=== PATIENT | female | born 2000 | race Caucasian/White ===

== ENCOUNTER 2019-09-06 17:45 | Emergency (ER) | payer BC, OTHER ==
[~2019-09-06] VITALS: Ht 154.9 cm; Wt 88.4 kg
[2019-09-06 17:46] VITALS: BP 142/88
[2019-09-06] MEDS ORDERED: ISIB1TAB (17:53)
[2019-09-06] MEDS ORDERED: KEFL500C17 PO (18:45)
== END 2019-09-06 18:51 | disposition home or self-care (01) ==
LOC: M ED 17:45
DX: S61.202A Unspecified open wound of right middle finger without damage to nail, initial encounter (principal); W26.8XXA Contact with other sharp object(s), not elsewhere classified, initial encounter; Y92.009 Unspecified place in unspecified non-institutional (private) residence as the place of occurrence of the external cause

== ENCOUNTER → 2019-10-10 | Outpatient (REF) | payer OTHER ==
[~2019-10-10] MED LIST: ISIB1TAB; KEFL500C17 PO
== END ==
LOC: M LAB REF 16:42
PROVIDERS: ATTEND Physician Assistant
DX: Z03.818 Encounter for observation for suspected exposure to other biological agents ruled out (principal); Z11.59 Encounter for screening for other viral diseases

== ENCOUNTER → 2020-07-15 | Outpatient (CLI) | payer SELFPAY | LOC: M LABSMTC 10:27 | PROVIDERS: ATTEND Pediatrics | DX: Z20.822 Contact with and (suspected) exposure to COVID-19 (principal) ==

== ENCOUNTER 2021-12-16 11:28 | Emergency (ER) | payer OTHER ==
[~2021-12-16] VITALS: Ht 154.9 cm; Wt 102.7 kg
[2021-12-16] MEDS ORDERED: ONDA4TAB6 PO (11:38)
[2021-12-16 12:38] LABS: BASO % 0.2 % (0.0-1.0); EOS # 0.1 10^3/uL (0.0-0.5); EOS % 0.4 % (0.0-3.0); HEMATOCRIT 40.9 % (36.0-47.0); HEMOGLOBIN 13.5 g/dl (12.0-15.5); LYMPH # 1.2 10^3/uL (1.5-5.0); LYMPH % 6.4 % (24.0-44.0); MEAN CORPUSCULAR HEMOGLOBIN 27.7 pg (27.0-33.0); MEAN CORPUSCULAR VOLUME 83.8 fl (80.0-96.0); MONO % 5.6 % (2.0-8.0); NEUTROPHILS # 16.3 10^3/uL (1.5-8.5); NEUTROPHILS % 86.9 % (36.0-66.0); PLATELET COUNT, AUTOMATED 329 10^3/uL (150-450); RED BLOOD COUNT 4.88 10^6/uL (4.00-5.40); WHITE BLOOD COUNT 18.7 10^3/uL (4.0-10.0)
[2021-12-16] MEDS ORDERED: MECLIZINE 25 MG TABLET PO ONE (13:30)
[2021-12-16] MEDS ORDERED: NS 1,000 ML IV ONE (13:35)
[2021-12-16 14:11] LABS: ALBUMIN 3.6 GM/DL (3.2-5.2); ALT/SGPT 28 U/L (12-78); BILIRUBIN,TOTAL 0.4 MG/DL (0.2-1.0); BLOOD UREA NITROGEN 7 MG/DL (7-18); CARBON DIOXIDE LEVEL 24 MEQ/L (21-32); CHLORIDE LEVEL 103 MEQ/L (98-107); CREATININE FOR GFR 0.71 MG/DL (0.55-1.30); GLOMERULAR FILTRATION RATE > 60.0 (>60); GLUCOSE, FASTING 84 MG/DL (70-100); HCG, SERUM QUANTITATIVE 58466 MIU/ML; POTASSIUM SERUM 4.1 MEQ/L (3.5-5.1); SODIUM LEVEL 138 MEQ/L (136-145); TOTAL PROTEIN 7.6 GM/DL (6.4-8.2)
[2021-12-16 14:50] LABS: CPK CREATINE PHOSPHOKINASE 63 U/L (26-192)
[2021-12-16] MEDS ORDERED: METOCLOPRAMIDE INJ 10MG/2ML VIAL (J2765 PER 1) IV ONE (15:25)
[2021-12-16] MEDS ORDERED: AMOX500C PO (16:06)
[2021-12-16] MEDS ORDERED: MECL1TAB31 PO (16:07)
[2021-12-16 16:30] VITALS: BP 130/67
== END 2021-12-16 16:32 | disposition home or self-care (01) ==
LOC: M ED 11:28
DX: O99.511 Diseases of the respiratory system complicating pregnancy, first trimester (principal); O00.01 Abdominal pregnancy with intrauterine pregnancy; O26.811 Pregnancy related exhaustion and fatigue, first trimester; F41.9 Anxiety disorder, unspecified; Z86.19 Personal history of other infectious and parasitic diseases; Z3A.01 Less than 8 weeks gestation of pregnancy; Z79.899 Other long term (current) drug therapy
CPT/HCPCS: 70551; 76801; 80053; 81000; 81015; 82550; 84484; 84702; 85025; 87077; 87186; 87486; 87581; 87633; 87798; 93005; 96361; 96374; 99284; J2765

== ENCOUNTER 2022-04-11 19:47 | Outpatient (CLI) | payer OTHER ==
[~2022-04-11] VITALS: Ht 154.9 cm; Wt 100.0 kg
[~2022-04-11 19:47] MED LIST changes: +AMOX500C PO; +MECL1TAB31 PO; +ONDA4TAB6 PO
[2022-04-11 19:59] VITALS: BP 124/78
[2022-04-11] MEDS ORDERED: PRENTAB9 PO (20:12)
[2022-04-11] MEDS ORDERED: ASPI81CH33 PO (20:12)
[2022-04-11] MEDS ORDERED: HOME MED LIST COMPLETE! XX SCH (20:15)
[2022-04-11] MEDS ORDERED: FLUCONAZOLE 50MG TABLET PO ONE (20:50)
== END 2022-04-11 21:03 | disposition home or self-care (01) ==
LOC: M LDO 19:47
PROVIDERS: ATTEND Obstetrics & Gynecology
DX: O26.892 Other specified pregnancy related conditions, second trimester (principal); Z3A.23 23 weeks gestation of pregnancy; O26.852 Spotting complicating pregnancy, second trimester; O99.213 Obesity complicating pregnancy, third trimester; E66.9 Obesity, unspecified; Z79.82 Long term (current) use of aspirin
CPT/HCPCS: 59025; 76815; 81000; 81015; 87088; 87186; G0463

== ENCOUNTER 2022-05-22 11:10 | Outpatient (CLI) | payer OTHER ==
[~2022-05-22] VITALS: Ht 154.9 cm; Wt 109.0 kg
[~2022-05-22 11:10] MED LIST changes: +ASPI81CH33 PO; +PRENTAB9 PO
[2022-05-22 11:26] VITALS: BP 130/71
[2022-05-22] MEDS ORDERED: TUMS500C PO (11:37)
[2022-05-22] MEDS ORDERED: HOME MED LIST COMPLETE! XX SCH (11:40)
== END 2022-05-22 13:37 | disposition home or self-care (01) ==
LOC: M LDO 11:10
PROVIDERS: ATTEND Obstetrics & Gynecology
DX: O9A.213 Injury, poisoning and certain other consequences of external causes complicating pregnancy, third trimester (principal); R10.2 Pelvic and perineal pain; W01.0XXA Fall on same level from slipping, tripping and stumbling without subsequent striking against object, initial encounter; Y92.9 Unspecified place or not applicable; Z3A.29 29 weeks gestation of pregnancy
CPT/HCPCS: 59025; 76815; G0463

== ENCOUNTER 2022-07-04 10:21 | Outpatient (CLI) | payer OTHER ==
[~2022-07-04] VITALS: Ht 154.9 cm; Wt 112.7 kg
[~2022-07-04 10:21] MED LIST changes: +TUMS500C PO
[2022-07-04] MEDS ORDERED: ACET-897 PO (10:37)
[2022-07-04] MEDS ORDERED: HOME MED LIST COMPLETE! XX SCH (10:40)
[2022-07-04 11:04] VITALS: BP 138/85
[2022-07-04] MEDS ORDERED: FLUCONAZOLE 50MG TABLET PO ONE (11:25)
== END 2022-07-04 11:35 | disposition home or self-care (01) ==
LOC: M LDO 10:21
PROVIDERS: ATTEND Registered Nurse
DX: O36.8130 Decreased fetal movements, third trimester, not applicable or unspecified (principal); Z3A.35 35 weeks gestation of pregnancy; O23.593 Infection of other part of genital tract in pregnancy, third trimester; B37.9 Candidiasis, unspecified
CPT/HCPCS: 59025; 76815; 87081; G0463

== ENCOUNTER 2022-07-28 19:55 | Outpatient (CLI) | payer OTHER ==
[~2022-07-28] VITALS: Ht 154.9 cm; Wt 116.9 kg
[~2022-07-28 19:55] MED LIST changes: +ACET-897 PO
[2022-07-28 20:14] VITALS: BP 134/80
[2022-07-28] MEDS ORDERED: PEPC1TAB5 PO (20:32)
[2022-07-28] MEDS ORDERED: HOME MED LIST COMPLETE! XX SCH (20:55)
== END 2022-07-28 22:33 | disposition home or self-care (01) ==
LOC: M LDO 19:55
PROVIDERS: ATTEND Obstetrics & Gynecology
DX: O47.1 False labor at or after 37 completed weeks of gestation (principal); Z3A.39 39 weeks gestation of pregnancy; Z79.82 Long term (current) use of aspirin; Z79.899 Other long term (current) drug therapy
CPT/HCPCS: 59025; 76815; G0463

== ENCOUNTER 2022-08-03 15:14 | Inpatient (IN) | payer OTHER ==
[2022-08-03] VITALS (17 sets, daily range): BP systolic 116–170; BP diastolic 55–98
[~2022-08-03] VITALS: Ht 154.9 cm; Wt 115.5 kg
[~2022-08-03 15:14] MED LIST changes: +PEPC1TAB5 PO
[2022-08-03] MEDS ORDERED: LACTATED RINGER'S 1000 ML IV STA (16:09)
[2022-08-03] MEDS ORDERED: LIDOCAINE 1% MDV 20ML VIAL INFIL PRN (16:10)
[2022-08-03] MEDS ORDERED: LR 1,000 ML IV SCH (16:10)
[2022-08-03] MEDS ORDERED: TRANEXAMIC ACID INJection 1,000 MG in NS 100 ML IV PRN (16:10)
[2022-08-03] MEDS ORDERED: CARBOPROST TROMETHAMINE 250 MCG/ML AMP IM PRN (16:10)
[2022-08-03] MEDS ORDERED: OXYTOCIN DRIP 30 UNITS in IV 1 EA IV PRN ×4 (16:10)
[2022-08-03 16:32] LABS: HEMATOCRIT 35.7 % (36.0-47.0); HEMOGLOBIN 12.2 g/dl (12.0-15.5); MEAN CORPUSCULAR HEMOGLOBIN 29.3 pg (27.0-33.0); MEAN CORPUSCULAR HGB CONC 34.2 g/dl (32.0-36.5); MEAN CORPUSCULAR VOLUME 85.8 fl (80.0-96.0); PLATELET COUNT, AUTOMATED 247 10^3/uL (150-450); RED BLOOD COUNT 4.16 10^6/uL (4.00-5.40); WHITE BLOOD COUNT 13.2 10^3/uL (4.0-10.0)
[2022-08-03] MEDS ORDERED: OXYTOCIN DRIP 30 UNITS in IV 1 EA IV SCH (16:45)
[2022-08-03] MEDS: LR 1,000 ML IV SCH ×2 (17:03→21:24)
[2022-08-03] MEDS ORDERED: NALBUPHINE HCL 10 MG/ML 1ML AMP IV PRN (20:40)
[2022-08-04] VITALS (30 sets, daily range): BP systolic 101–141; BP diastolic 57–102
[2022-08-04] MEDS ORDERED: diphenhydrAMINE 50MG/ML VIAL IV PRN ×2 (01:35→09:35)
[2022-08-04] MEDS ORDERED: ePHEDrine SULFATE 25 MG/5 ML(5MG/ML) SYRINGE IVP PRN (01:35)
[2022-08-04] MEDS ORDERED: LR 500 ML IV PRN (01:35)
[2022-08-04] MEDS ORDERED: FENTANYL/ROPIVACAINE/NACL BAG 100 ML EPIDURAL SCH (01:35)
[2022-08-04] MEDS ORDERED: ONDANSETRON 4MG 2ML VIAL IV PRN ×3 (01:35→09:35)
[2022-08-04] MEDS ORDERED: NALOXONE INJ 0.4MG/1ML VIAL IV PRN ×3 (01:35→09:35)
[2022-08-04] MEDS ORDERED: EPIDURAL/PCA KEYS XX PRN (01:35)
[2022-08-04] MEDS ORDERED: ONDANSETRON 4MG 2ML VIAL As Ordered ONE (07:39)
[2022-08-04] MEDS ORDERED: KETOROLAC 60MG 2ML VIAL As Ordered ONE (07:39)
[2022-08-04] MEDS ORDERED: OXYTOCIN INJ 10UNITS/ML 1ML VIAL As Ordered ONE (07:39)
[2022-08-04] MEDS ORDERED: OXYTOCIN DRIP 30 UNITS in IV 1 EA IV PRN ×4 (07:40)
[2022-08-04] MEDS ORDERED: TRANEXAMIC ACID INJection 1,000 MG in NS 100 ML IV PRN (07:40)
[2022-08-04] MEDS ORDERED: METHYLERGONOVINE MALEATE 0.2MG/ML 1ML VIAL IM PRN (07:40)
[2022-08-04] MEDS ORDERED: AZITHROMYCIN INJ 500 MG, VIAL MATE ADAPTER 1 EACH in NS 250 ML IV ONE (07:40)
[2022-08-04] MEDS ORDERED: LIDOCAINE 1% MDV 20ML VIAL INFIL PRN (07:40)
[2022-08-04] MEDS ORDERED: BUPIVACAINE HCL 0.25% 10ML VIAL SC ONE (07:40)
[2022-08-04] MEDS ORDERED: BICITRA 30ML SOLN UDC PO ONE (07:40)
[2022-08-04] MEDS ORDERED: ceFAZolin SOD 3 GM IV Place Holder IV ONE (07:40)
[2022-08-04] MEDS ORDERED: MORPHINE PRES-FREE INJ 10 MG/10 ML VIAL As Ordered ONE (07:40)
[2022-08-04] MEDS ORDERED: LIDOCAINE 2% W/EPINEPHRINE 20ML VIAL **PRES FREE As Ordered ONE (07:46)
[2022-08-04] MEDS ORDERED: ceFAZolin SOD 1 GM in D5W MINI-BAG PLUS 50 ML IV ONE (07:50)
[2022-08-04] MEDS ORDERED: ceFAZolin SOD 2 GM in IV 1 EA IV ONE (07:50)
[2022-08-04] MEDS ORDERED: fentaNYL 100 MCG/2 ML INJECTION As Ordered ONE (08:33)
[2022-08-04] MEDS ORDERED: PHENYLephrine 500MCG 5ML (100MCG/ML) SYRINGE As Ordered ONE (08:41)
[2022-08-04 08:52] LABS: CORD GAS ABE A -3.7; CORD GAS HCO3 A 25.2 MMOL/L; CORD GAS O2 SAT A 56.6 %; CORD GAS PCO2 A 59.8 mmHg; CORD GAS PH A 7.242 UNITS; CORD GAS PO2 A 26.2 mmHg; CORD GAS SBC A 20.4 MMOL/L
[2022-08-04 08:54] LABS: CORD GAS ABE V -6.4; CORD GAS HCO3 V 20.2 MMOL/L; CORD GAS O2 SAT V 81.3 %; CORD GAS PCO2 V 44.1 mmHg; CORD GAS PH V 7.279 UNITS; CORD GAS PO2 V 39.3 mmHg; CORD GAS SBC V 18.9 MMOL/L; CORD GAS TCO2 V 21.6 MMOL/L
[2022-08-04] MEDS: DOCUSATE SODIUM 100MG CAPSULE PO SCH ×2 (09:00→21:13)
[2022-08-04] MEDS: PRENATAL VITAMINS CHEWABLE TABLET PO SCH (09:00)
[2022-08-04] MEDS ORDERED: BUPIVACAINE/EPIN 0.25% 30ML VIAL As Ordered ONE (09:09)
[2022-08-04] MEDS ORDERED: ONDANSETRON 4MG TAB PO PRN (09:20)
[2022-08-04] MEDS ORDERED: METHYLERGONOVINE MALEATE 0.2 MG TAB PO PRN (09:20)
[2022-08-04] MEDS ORDERED: OXYTOCIN DRIP 30 UNITS in IV 1 EA IV SCH ×4 (09:20)
[2022-08-04] MEDS ORDERED: oxyCODONE 5MG TAB PO PRN ×2 (09:20→09:35)
[2022-08-04] MEDS ORDERED: RHOGAM 300MCG (1500IU) INJ IM SCH (09:20)
[2022-08-04] MEDS ORDERED: SIMETHICONE 80MG CHEW TAB PO PRN (09:20)
[2022-08-04] MEDS ORDERED: MOM 30ML SUSPENSION UDC PO PRN (09:20)
[2022-08-04] MEDS: SLF 3 ML SYR IV SCH ×2 (09:35→18:22)
[2022-08-04] MEDS ORDERED: fentaNYL 100 MCG/2 ML INJECTION IV PRN (09:35)
[2022-08-04] MEDS ORDERED: METOCLOPRAMIDE INJ 10MG/2ML VIAL IV PRN (09:35)
[2022-08-04] MEDS ORDERED: **NOTE PATIENT COMMENT** MISC XX SCH (09:35)
[2022-08-04] MEDS ORDERED: HYDROMORPHONE HCL 0.5 MG/ 0.5 ML SYRINGE IV PRN (09:35)
[2022-08-04] MEDS: ACETAMINOPHEN 500 MG TAB PO SCH ×2 (12:31→18:22)
[2022-08-04] MEDS: LR 1,000 ML IV SCH ×2 (12:33→16:45)
[2022-08-04] MEDS: KETOROLAC 30 MG/ML 1ML VIAL IV SCH ×2 (15:13→21:14)
[2022-08-04] MEDS ORDERED: LR 1,000 ML IV SCH (19:30)
[2022-08-05] MEDS: ACETAMINOPHEN 500 MG TAB PO SCH ×4 (00:21→17:59)
[2022-08-05 02:00] VITALS: BP 120/67
[2022-08-05] MEDS: SLF 3 ML SYR IV SCH (02:02)
[2022-08-05] MEDS: KETOROLAC 30 MG/ML 1ML VIAL IV SCH (02:48)
[2022-08-05 05:47] LABS: HEMATOCRIT 29.6 % (36.0-47.0); MEAN CORPUSCULAR HEMOGLOBIN 29.4 pg (27.0-33.0); MEAN CORPUSCULAR HGB CONC 33.1 g/dl (32.0-36.5); MEAN CORPUSCULAR VOLUME 88.9 fl (80.0-96.0); PLATELET COUNT, AUTOMATED 196 10^3/uL (150-450); RED BLOOD COUNT 3.33 10^6/uL (4.00-5.40); WHITE BLOOD COUNT 15.7 10^3/uL (4.0-10.0)
[2022-08-05 05:54] LABS: HEMOGLOBIN 9.8 g/dl (12.0-15.5)
[2022-08-05 06:00] VITALS: BP 128/98
[2022-08-05 08:07] LABS: URIC ACID 7.4 MG/DL (3.1-7.8)
[2022-08-05 08:09] LABS: LDH LACTATE DEHYDROGENASE 247 U/L (120-246)
[2022-08-05 08:10] LABS: ALBUMIN 1.9 G/DL (3.2-5.2); ALKALINE PHOSPHATASE 121 U/L (46-116); ALT/SGPT 34 U/L (7.0-40); AST/SGOT 29 U/L (<34); BILIRUBIN,TOTAL 0.4 MG/DL (0.3-1.2); BLOOD UREA NITROGEN 9 MG/DL (9-23); CALCIUM LEVEL 8.1 MG/DL (8.5-10.1); CARBON DIOXIDE LEVEL 24 MMOL/L (20-31); CHLORIDE LEVEL 107 MMOL/L (98-107); CREATININE FOR GFR 0.68 MG/DL (0.55-1.30); GLOMERULAR FILTRATION RATE > 60.0 (>60); GLUCOSE, FASTING 71 MG/DL (60-100); POTASSIUM SERUM 3.7 MMOL/L (3.5-5.1); SODIUM LEVEL 139 MMOL/L (136-145); TOTAL PROTEIN 4.6 G/DL (5.7-8.2)
[2022-08-05] MEDS: PRENATAL VITAMINS CHEWABLE TABLET PO SCH (09:00)
[2022-08-05 10:00] VITALS: BP 115/66
[2022-08-05] MEDS: oxyCODONE 5MG TAB PO PRN ×2 (12:04→23:21)
[2022-08-05] MEDS: IBUPROFEN 800 MG TAB PO SCH ×2 (12:20→18:00)
[2022-08-05] MEDS: DOCUSATE SODIUM 100MG CAPSULE PO SCH ×2 (12:35→21:37)
[2022-08-05 14:00] VITALS: BP 121/68
[2022-08-05 18:00] VITALS: BP 118/64
[2022-08-05 22:00] VITALS: BP 130/82
[2022-08-06] MEDS: ACETAMINOPHEN 500 MG TAB PO SCH ×2 (00:49→05:35)
[2022-08-06 02:00] VITALS: BP 122/78
[2022-08-06] MEDS: IBUPROFEN 800 MG TAB PO SCH (02:42)
[2022-08-06 06:00] VITALS: BP 123/69
[2022-08-06] MEDS ORDERED: MEASLES,MUMPS,RUBELLA VACCINE INJ (MMR-II) SC.IMMUN ONE (09:00)
[2022-08-06] MEDS: PRENATAL VITAMINS CHEWABLE TABLET PO SCH (09:54)
[2022-08-06] MEDS: DOCUSATE SODIUM 100MG CAPSULE PO SCH (09:54)
[2022-08-06 10:00] VITALS: BP 133/90
== END 2022-08-06 11:55 | disposition home or self-care (01) | DRG 772 ==
LOC: M LDI 15:14 → M OBS 08-04 11:15
PROVIDERS: ADMIT Advanced Practice Midwife; ATTEND Obstetrics & Gynecology
PROC: 10D00Z1 Extraction of Products of Conception, Low, Open Approach (ICD-10-PCS; principal; 2022-08-04 08:00)
DX: O42.02 Full-term premature rupture of membranes, onset of labor within 24 hours of rupture (principal); Z68.41 Body mass index [BMI] 40.0-44.9, adult; Z3A.40 40 weeks gestation of pregnancy; Z37.0 Single live birth; O77.0 Labor and delivery complicated by meconium in amniotic fluid; O76 Abnormality in fetal heart rate and rhythm complicating labor and delivery; O99.214 Obesity complicating childbirth; E66.9 Obesity, unspecified; Z79.82 Long term (current) use of aspirin; Z79.899 Other long term (current) drug therapy